=== PATIENT | male | born 1975 | race African-American/Black ===

== ENCOUNTER 2021-03-23 20:25 | Emergency (ER) | payer MEDICAID ==
[~2021-03-23] VITALS: Ht 170.2 cm; Wt 74.8 kg
[2021-03-23 20:42] VITALS: Ht 170.2 cm; Wt 74.8 kg
[2021-03-23 21:00] VITALS: BP 138/74
== END 2021-03-23 21:00 | disposition home or self-care (01) ==
LOC: D.ER 20:25
DX: R10.9 Unspecified abdominal pain (principal); Z43.3 Encounter for attention to colostomy; R53.81 Other malaise